=== PATIENT | female | born 1995 | race American Indian/Alaskan Native ===

== ENCOUNTER 2017-03-21 01:59 | Emergency (ER) | payer MEDICAID ==
[2017-03-21] MEDS ORDERED: TORADOL IV ONE (04:24)
[2017-03-21] MEDS ORDERED: NACL 0.9% 1000 ML 1,000 ML IV ONE ×3 (04:24→07:32)
[2017-03-21] MEDS ORDERED: ZOFRAN IV ONE (04:24)
[2017-03-21] MEDS ORDERED: ROCEPHIN/NS 1 GM/50 ML 1 GM/50 ML BAG IV ONE (04:25)
--- NOTE | 2017-03-21 04:25 | Emergency Department Report ---
ED Female HPI - General Chief complaint: Back Pain/Injury Stated complaint: LOWER BACK PAIN Time Seen by Provider: 03/21/17 04:18 Source: patient Mode of arrival: Ambulatory Limitations: No Limitations - History of Present Illness Initial comments: 21-year-old female past medical history history of pyelonephritis presents with complaint of 3-4 days of increased urinary frequency, foul-smelling urine, right -sided flank pain. Patient states she feels slightly more fatigued than usual. Patient is awake alert and oriented 3 denies abdominal pain denies chest pain or palpitations, does complain of subjective fever and chills. She has an IUD. Radiation: R flank Severity: moderate Severity scale (0 -10): 6 Quality: aching Improves with: none Worsens with: none Are you Now?: No Associated Symptoms: dysuria - Related Data Previous Rx's Medication Instructions Recorded Last Taken Type Ciprofloxacin HCl [Ciprofloxacin 500 mg PO Q12H #14 tab 03/21/17 Unknown Rx TAB] Ondansetron [Zofran Odt] 4 mg PO Q8H PRN #10 tab.rapdis 03/21/17 Unknown Rx Phenazopyridine [Pyridium] 100 mg PO TID #6 tab 03/21/17 Unknown Rx Allergies Allergy/AdvReac Type Severity Reaction Status Date / Time No Known Allergies Allergy Unverified 03/21/17 02:25 ED Review of Systems ROS: Stated complaint: LOWER BACK PAIN Other details as noted in HPI Constitutional: denies: chills, fever Eyes: denies: eye pain, eye discharge, vision change ENT: denies: ear pain, throat pain Respiratory: denies: cough, shortness of breath, wheezing Cardiovascular: denies: chest pain, palpitations Endocrine: no symptoms reported Gastrointestinal: denies: abdominal pain, nausea, diarrhea Genitourinary: dysuria, frequency (increased urinary frequency). denies: urgency, discharge Musculoskeletal: denies: back pain, joint swelling, arthralgia Skin: denies: rash, lesions Neurological: denies: headache, weakness, paresthesias Psychiatric: denies: anxiety, depression Hematological/Lymphatic: denies: easy bleeding, easy bruising ED Past Medical Hx - Past Medical History Previous Medical History?: No - Surgical History Past Surgical History?: Yes Additional Surgical History: x1 - Social History Smoking Status: Never Smoker Substance Use Type: None - Medications Home Medications: Home Medications Medication Instructions Recorded Confirmed Last Taken Type Ciprofloxacin HCl [Ciprofloxacin 500 mg PO Q12H #14 tab 03/21/17 Unknown Rx TAB] Ondansetron [Zofran Odt] 4 mg PO Q8H PRN #10 tab.rapdis 03/21/17 Unknown Rx Phenazopyridine [Pyridium] 100 mg PO TID #6 tab 03/21/17 Unknown Rx ED Physical Exam - General Limitations: No Limitations General appearance: alert, in no apparent distress - Head Head exam: Present: atraumatic, normocephalic - Eye Eye exam: Present: normal appearance, PERRL, EOMI - ENT ENT exam: Present: mucous membranes moist - Neck Neck exam: Present: normal inspection - Respiratory Respiratory exam: Present: normal lung sounds bilaterally. Absent: respiratory distress - Cardiovascular Cardiovascular Exam: Present: regular rate, normal rhythm. Absent: systolic murmur, diastolic murmur, rubs, gallop - GI/Abdominal GI/Abdominal exam: Present: soft, normal bowel sounds - Extremities Exam Extremities exam: Present: normal inspection - Back Exam Back exam: Present: normal inspection, CVA tenderness (R) (right-sided CVA tenderness on clinical exam) - Neurological Exam Neurological exam: Present: alert, oriented X3, CN II-XII intact, normal gait - Psychiatric Psychiatric exam: Present: normal affect, normal mood - Skin Skin exam: Present: warm, dry, intact, normal color. Absent: rash ED Course Vital Signs 03/21/17 03/21/17 02:08 02:17 Temperature 99.8 F H 99.8 F H Pulse Rate 105 H 101 H Respiratory 20 20 Rate Blood Pressure 118/45 118/45 O2 Sat by Pulse 100 99 Oximetry ED Medical Decision Making - Lab Data Result diagrams: 03/21/17 04:31 03/21/17 04:31 - Medical Decision Making A/P: Clinical pyelonephritis 1-CT scan consistent with pyelonephritis 2-course of 3- 4- Critical care attestation.: If time is entered above; I have spent that time in minutes in the direct care of this critically ill patient, excluding procedure time. ED Disposition Clinical Impression: Pyelonephritis Disposition: DC-01 TO HOME OR SELFCARE Is pt being admited?: No Does the pt Need Aspirin: No Condition: Stable Instructions: Acute Pyelonephritis (ED), Flank Pain (ED), Urinary Tract Infection in Women (ED) Prescriptions: Ciprofloxacin HCl [Ciprofloxacin TAB] 500 mg PO Q12H #14 tab Ondansetron [Zofran Odt] 4 mg PO Q8H PRN #10 tab.rapdis PRN Reason: Nausea Phenazopyridine [Pyridium] 100 mg PO TID #6 tab Referrals: ROBERT FARAH MD [Staff Physician] - 3-5 Days [facility] [Provider Group] - 3-5 Days [facility] [Outside] - 3-5 Days [facility] [Outside] - 3-5 Days Forms: Work/School Release Form(ED) Time of Disposition: 07:22
[2017-03-21 04:30] LABS: Bacteria,Urine 1+ /HPF (Negative); Bilirubin,Urine NEG (Negative); Blood,Urine SM (Negative); Ketones,Urine NEG (Negative); Leukocyte Esterase,Urine LG (Negative); Mucus,Urine FEW /HPF; Nitrite,Urine NEG (Negative); Urobilinogen,Urine < 2.0 mg/dL (<2.0); WBC,Urine > 182.0 /HPF (0.0-6.0)
[2017-03-21 04:44] LABS: Basophils % (Auto) 0.2 % (0.0-1.8); Eosinophils % (Auto) 0.1 % (0.0-4.3); Hematocrit 37.6 % (30.3-42.9); Hemoglobin 12.9 gm/dl (10.1-14.3); Mean Corpuscular HGB Conc 34 % (30-34); Mean Corpuscular Hemoglobin 31 pg (28-32); Mean Corpuscular Volume 90 fl (79-97); Platelet Count 230 K/mm3 (140-440); Red Blood Count 4.16 M/mm3 (3.65-5.03); Red Cell Distribution Width 13.7 % (13.2-15.2); White Blood Count 11.6 K/mm3 (4.5-11.0)
[2017-03-21 05:05] LABS: Anion Gap 16 mmol/L; Blood Urea Nitrogen 4 mg/dL (7-17); Calcium 8.8 mg/dL (8.4-10.2); Carbon Dioxide 21 mmol/L (22-30); Chloride 100.2 mmol/L (98-107); Creatine Kinase 81 units/L (30-135); Glucose 110 mg/dL (65-100); Potassium 3.6 mmol/L (3.6-5.0); Sodium 134 mmol/L (137-145)
[2017-03-21] MEDS ORDERED: NACL ONE (06:01)
--- NOTE | 2017-03-21 06:51 | Cat Scan Report ---
FINAL REPORT EXAM: CT ABDOMEN PELVIS W CON HISTORY: ? right side pyelonephritis rt flank pain TECHNIQUE: CT images are acquired through the Abdomen and Pelvis in cortical medullary and delayed excretory phases following intravenous administration of contrast. Transaxial, coronal and sagittal reformations are provided. PRIORS: None FINDINGS: Partially visualized intrathoracic contents are unremarkable. There is periportal and pericholecystic edema. The liver, gallbladder, pancreas, spleen, and adrenal glands are otherwise unremarkable. A subcentimeter focus of right upper pole renal cortical hypo enhancement is present on coronal images 69-72. The ureters are normal in course and caliber and are well opacified throughout their length on excretory phase imaging. No urothelial thickening or filling defect. Urinary bladder is unremarkable. Small and large bowel are normal in caliber. Appendix is normal. No free air, free fluid, or lymphadenopathy identified. Aorta is normal in course and caliber. Anteverted uterus containing IUD. Small volume of free fluid in the pelvis may be physiologic. Superficial soft tissues are unremarkable. No acute or aggressive appearing skeletal findings. IMPRESSION: No renal abscess. A small focus of cortical hypo enhancement in the upper pole of the right kidney may represent pyelonephritis in the proper clinical setting. Periportal and pericholecystic edema is most likely secondary to fluid resuscitation. Differential diagnosis includes cholecystitis and primary infectious and inflammatory hepatic etiologies. Consider further evaluation with ultrasound as clinically warranted. Dr. Person discussed findings with Jeramie MARK at [id number] [employer] following the examination.
[2017-03-21 07:18] LABS: Albumin 4.1 g/dL (3.9-5); Albumin/Globulin Ratio 1.3 %; Bilirubin,Direct 0.2 mg/dL (0-0.2); Bilirubin,Indirect 0.8 mg/dL; Total Protein 7.2 g/dL (6.3-8.2)
[2017-03-21] MEDS ORDERED: TYLENOL PO ONE (07:32)
[2017-03-21 08:49] VITALS: BP 107/63
== END 2017-03-21 08:50 | disposition home or self-care (01) ==
LOC: ED 01:59
DX: N12 Tubulo-interstitial nephritis, not specified as acute or chronic (principal)
CPT/HCPCS: 36415; 74177; 80048; 80074; 81001; 81025; 82140; 82150; 82550; 83690; 85025; 87076; 87086; 87186; 96361; 96365; 96375; 99284; J0696; J1885; J2405; J7030; Q9967

== ENCOUNTER 2017-03-23 20:58 | Emergency (ER) | payer MEDICAID ==
[2017-03-24 03:23] LABS: Bacteria,Urine 2+ /HPF (Negative); Bilirubin,Urine NEG (Negative); Blood,Urine NEG (Negative); Ketones,Urine 20 mg/dL (Negative); Leukocyte Esterase,Urine LG (Negative); Mucus,Urine FEW /HPF; Nitrite,Urine NEG (Negative); Urobilinogen,Urine < 2.0 mg/dL (<2.0)
--- NOTE | 2017-03-24 04:46 | Emergency Department Report ---
ED Female HPI - General Chief complaint: Urogenital-Female Stated complaint: "EXTREME VAGINAL IRRITATION" Time Seen by Provider: 03/24/17 04:21 Source: patient, family Mode of arrival: Ambulatory Limitations: No Limitations - History of Present Illness Initial comments: Patient reports that she was here 928 and was treated for urinary tract infection. She was placed on ciprofloxacin and, Zofran and Pyridium. She says she is having white rash irritated areas on her external vaginal area she said pain is 7 out of 10. She says she also has some vaginal discharge and when she wiped it looked yellow. Patient says she had no sex since she was here and currently taken antibiotics. She said the bump on her labia or painful and she' s never had that before. She reports that she thinks she has herpes but had doesn't know if that's what it is because she's never been diagnosed with herpes. Patient is currently sexually active. She had a urinary tract infection on 928 that was treated and culture urine positive for gram-negative bacilli. Urine tests on 03/21/2017 was also negative. Patient denies any abdominal or back pain. Denies any vaginal bleeding. Denies any nausea or vomiting or fever or chills. MD Complaint: vaginal discharge, dysuria, possible STD Onset/Timin -: days(s) Location: labia (5 days with lesion) Radiation: non-radiating Severity: severe Severity scale (0 -10): 7 Quality: burning Consistency: constant Improves with: none Worsens with: none Are you Now?: No Associated Symptoms: vaginal discharge, dysuria, rash. denies: vaginal bleeding , abdominal pain, nausea/vomiting, fever/chills, headaches, loss of appetite, hematuria, seizure, shortness of breath, syncope, weakness - Related Data Sexually active: Yes Previous Rx's Medication Instructions Recorded Last Taken Type Ciprofloxacin HCl [Ciprofloxacin 500 mg PO Q12H #14 tab 03/21/17 Unknown Rx TAB] Ondansetron [Zofran Odt] 4 mg PO Q8H PRN #10 tab.rapdis 03/21/17 Unknown Rx Phenazopyridine [Pyridium] 100 mg PO TID #6 tab 03/21/17 Unknown Rx Ibuprofen [Motrin] 600 mg PO Q8H PRN #15 tablet 03/24/17 Unknown Rx Nitrofurantoin [place]/M-Cryst 100 mg PO Q12HR #14 capsule 03/24/17 Unknown Rx [Macrobid CAP] Valacyclovir HCl [Valtrex] 1,000 mg PO TID #21 tablet 03/24/17 Unknown Rx Allergies Allergy/AdvReac Type Severity Reaction Status Date / Time No Known Allergies Allergy Unverified 03/21/17 02:25 ED Review of Systems ROS: Stated complaint: "EXTREME VAGINAL IRRITATION" Other details as noted in HPI Comment: All other systems reviewed and negative Constitutional: no symptoms reported Eyes: denies: eye pain, vision change ENT: denies: throat pain Respiratory: no symptoms reported Cardiovascular: denies: chest pain, palpitations, dyspnea on exertion, edema, syncope, paroxysmal nocturnal dyspnea Gastrointestinal: denies: abdominal pain, nausea, vomiting, diarrhea, constipation Genitourinary: dysuria, discharge. denies: frequency, hematuria Musculoskeletal: denies: back pain, joint swelling, arthralgia, myalgia Skin: lesions (genital, painful). denies: rash, pruritus Neurological: denies: headache ED Past Medical Hx - Past Medical History Previous Medical History?: Yes Additional medical history: Urinary tract infection - Surgical History Past Surgical History?: Yes Additional Surgical History: x1 - Family History Family history: no significant - Social History Smoking Status: Never Smoker Substance Use Type: None Other Social History: Single - Medications Home Medications: Home Medications Medication Instructions Recorded Confirmed Last Taken Type Ciprofloxacin HCl [Ciprofloxacin 500 mg PO Q12H #14 tab 03/21/17 Unknown Rx TAB] Ondansetron [Zofran Odt] 4 mg PO Q8H PRN #10 tab.rapdis 03/21/17 Unknown Rx Phenazopyridine [Pyridium] 100 mg PO TID #6 tab 03/21/17 Unknown Rx Ibuprofen [Motrin] 600 mg PO Q8H PRN #15 tablet 03/24/17 Unknown Rx Nitrofurantoin [place]/M-[place]ryst 100 mg PO Q12HR #14 capsule 03/24/17 Unknown Rx [Macrobid CAP] Valacyclovir HCl [Valtrex] 1,000 mg PO TID #21 tablet 03/24/17 Unknown Rx ED Physical Exam - General Limitations: No Limitations General appearance: alert, in no apparent distress - Head Head exam: Present: atraumatic, normocephalic, normal inspection - Eye Eye exam: Present: normal appearance, PERRL, EOMI. Absent: periorbital swelling , periorbital tenderness Pupils: Present: normal accommodation - ENT ENT exam: Present: normal exam, normal orophraynx, mucous membranes moist, TM's normal bilaterally, normal external ear exam - Neck Neck exam: Present: normal inspection, full ROM. Absent: tenderness, meningismus, lymphadenopathy - Respiratory Respiratory exam: Present: normal lung sounds bilaterally. Absent: respiratory distress, chest wall tenderness - Cardiovascular Cardiovascular Exam: Present: regular rate, normal rhythm, normal heart sounds. Absent: systolic murmur, diastolic murmur - GI/Abdominal GI/Abdominal exam: Present: soft, normal bowel sounds. Absent: distended, tenderness, guarding, rebound, rigid, organomegaly, mass, bruit, pulsatile mass - Rectal Rectal exam: Present: normal inspection - External exam: Present: lesions (tender to palpate). Absent: normal external exam, erythema, swelling, lacerations, ecchymosis, bleeding Speculum exam: Present: vaginal discharge, cervical discharge. Absent: erythema , vaginal bleeding, foreign body, tissue, laceration Bi-manual exam: Present: normal bi-manual exam - Expanded Exam Expanded Female exam: Present: herpetic lesions, vulvar tenderness. Absent: vaginal laceration, tissue present in vagina, vulvar erythema, foreign body Speculum exam: Present: cervical OS closed, vaginal discharge. Absent: vaginal bleeding - Extremities Exam Extremities exam: Present: normal inspection, full ROM, normal capillary refill , other (no clubbing cyanosis or edema to extremities. +2 pulses to extremities.). Absent: tenderness, pedal edema, joint swelling, calf tenderness - Back Exam Back exam: Present: normal inspection, full ROM. Absent: tenderness, CVA tenderness (R), CVA tenderness (L), muscle spasm, paraspinal tenderness, vertebral tenderness, rash noted - Neurological Exam Neurological exam: Present: alert, oriented X3, normal gait, reflexes normal. Absent: motor sensory deficit - Psychiatric Psychiatric exam: Present: normal affect, normal mood - Skin Skin exam: Present: warm, dry, intact, normal color, rash ( lesions noted to the external vaginal area) ED Course Vital Signs 03/23/17 22:14 Temperature 98.6 F Pulse Rate 82 Respiratory 18 Rate Blood Pressure 129/79 O2 Sat by Pulse 99 Oximetry - Reevaluation(s) Reevaluation #1: 03/24/17 06:23 Patient given Rocephin 1 g IM and azithromycin 1 g by mouth to treat gonorrhea and chlamydia at her request. ED Medical Decision Making - Lab Data Lab Results 03/24/17 Range/Units 02:30 Urine Color Yellow (Yellow) Urine Turbidity Clear (Clear) Urine pH 6.0 (5.0-7.0) Ur Specific [place] 1.014 (1.003-1.030) Urine Protein 30 mg/dl (Negative) mg/dL Urine Glucose (UA) Neg (Negative) mg/dL Urine Ketones 20 (Negative) mg/dL Urine Blood Neg (Negative) Urine Nitrite Neg (Negative) Urine Bilirubin Neg (Negative) Urine Urobilinogen < 2.0 (<2.0) mg/dL Ur Leukocyte Esterase Lg (Negative) Urine WBC (Auto) 58.0 H (0.0-6.0) /HPF Urine RBC (Auto) 9.0 (0.0-6.0) /HPF U Epithel Cells (Auto) 18.0 H (0-13.0) /HPF Urine Bacteria (Auto) 2+ (Negative) /HPF Urine Mucus Few /HPF Urine culture sent and pending Previous culture from 03/21/2017 suggests Benny night negative bacteria in urine. We'll change antibiotic. Wet prep negative for clue cells, Trichomonas and yeast. Gonorrhea and Chlamydia is pending. - Medical Decision Making ED course: Here reports that she was here on 03/21/2017 and was treated for kidney and urinary tract infection with ciprofloxacin and she said for the past 5 days she's been having in a painful rash in her vaginal area and she thinks is herpes. She also reports vaginal discharge and when she wipes is yellow. Patient is wanting to be treated for gonorrhea and chlamydia and other STD. Patient had repeat urinalysis done which was contaminated and previous urinalysis from 03/21 was also contaminated with epithelial cells of 29 and today it was epithelial cells 18 large leukocyte Estrace 58 white count and 2+ bacteria. She had 20 of dixon tones and 30 of protein in her urine. Patient able to tolerate large amount of fluids by mouth and she is not having any nausea. She is currently on ciprofloxacin was started on 03/21/2017 for urinary tract infection. I reviewed patient's urine culture that was sent on and it reports that patient has negative rods in her urine. Given the fact that urine was contaminated this could be consider falls but given the patient having dysuria with large amount leukocyte esterase and white counts which could be from vaginal discharge I will go ahead and discontinue Cipro and start her on Macrobid. Wet prep revealed no clue cells, no trichomonas and no yeast. The findings revealed herpetic type lesion that is painful to touch and without touch to external vaginal area. Pelvic exam revealed cervix and vaginal discharge. I discussed the patient's diagnosis and treatment plan and she wants to be treated in emergency room for gonorrhea and Chlamydia even though results are not back. She was given Rocephin 1 g IM to treat gonorrhea and UTI and also azithromycin 1 g by mouth to treat chlamydia. I instructed the patient that she needs to follow up with DEPUTY COURT CLERK and she requested me to refer her to one. I told her that she needs to have a Pap smear done to include HPV test then. test from 03/21/2017 was negative . Patient discharged home with prescription for Macrobid, Diflucan on, valacyclovir and Motrin. Critical care attestation.: If time is entered above; I have spent that time in minutes in the direct care of this critically ill patient, excluding procedure time. 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 Call tomorrow to schedule appointment for female exam and pap smear Take medication as prescribed Please refrain from sexual activity until cleared by DEPUTY COURT CLERK You will need repeat urine and std test in 10 days Practice safe sex Stop ciprofloxacin and start Macrobid antibiotic. This is for urinary tract infection Valtrex for herpes lesion Take Motrin for pain as instructed Please tell partner that you were treated in emergency room for STD as discussed. Prescriptions: Ibuprofen [Motrin] 600 mg PO Q8H PRN #15 tablet PRN Reason: Pain Nitrofurantoin [place]/M-[place]ryst [Macrobid CAP] 100 mg PO Q12HR #14 capsule Valacyclovir HCl [Valtrex] 1,000 mg PO TID #21 tablet Referrals: NORA VILLARREAL MD [Staff Physician] - 2-3 Days Forms: Work/School Release Form(ED)
[2017-03-24] MEDS ORDERED: ROCEPHIN IM STA (05:26)
[2017-03-24] MEDS ORDERED: XYLOCAINE 1% MPF 5 mL INFILTRATI ONE (05:26)
[2017-03-24] MEDS ORDERED: ZITHROMAX PO ONE (05:26)
[2017-03-24 06:56] VITALS: BP 118/69
== END 2017-03-24 07:22 | disposition home or self-care (01) ==
LOC: ED 20:58
DX: A60.04 Herpesviral vulvovaginitis (principal); N39.0 Urinary tract infection, site not specified; E86.0 Dehydration
CPT/HCPCS: 81001; 87086; 87210; 87591; 96372; 99284; J0696

== ENCOUNTER 2018-02-15 15:45 | Emergency (ER) | payer MEDICAID ==
[2018-02-15] MEDS ORDERED: MOTRIN PO ONE (15:58)
[2018-02-15 18:36] VITALS: BP 100/53
--- NOTE | 2018-02-15 19:50 | Emergency Department Report ---
<CHASEFREDYSYDIan Back - Last Filed: 02/15/18 19:46> ED General Adult HPI - General Chief complaint: Headache Stated complaint: MAJOR HEAD ACHE/SIDE PAIN Time Seen by Provider: 02/15/18 19:39 Source: patient Mode of arrival: Ambulatory Limitations: No Limitations - History of Present Illness Initial comments: 22-year-old -German female presents to the emergency room for a headache and right lower quadrant pain. Patient reports that her headache feels like pressure and it started about 12 AM Saturday morning. She reports that the right lower quadrant pain has been going on for 2 days it's achy in this as 6 out of 10. Patient denies any vomiting but does admit to nausea and dysuria. She denies any vaginal discharge no sore throat. Patient reports that the pain is more on her left lower quadrant when she lays on the right side. Patient reports that she took a quarter of a Tylenol No. 3 which she reports did not help with her pain. Patient has no past medical history currently takes no medications on a daily basis and has no known drug allergies. -: days(s) (2 days for right lower quadrant pain), This morning (12 AM for headache with pressure) Location: head, abdomen (right lower quadrant) Radiation: non-radiation Severity scale (0 -10): 6 Quality: aching (abdomen), other (headache with pressure,) Consistency: constant Improves with: medication (Motrin that was given to her in triage) - Related Data Previous Rx's Medication Instructions Recorded Last Taken Type Ciprofloxacin HCl [Ciprofloxacin 500 mg PO Q12H #14 tab 03/21/17 Unknown Rx TAB] Ondansetron [Zofran Odt] 4 mg PO Q8H PRN #10 tab.rapdis 03/21/17 Unknown Rx Phenazopyridine [Pyridium] 100 mg PO TID #6 tab 03/21/17 Unknown Rx Nitrofurantoin [place]/M-Cryst 100 mg PO Q12HR #14 capsule 03/24/17 Unknown Rx [Macrobid CAP] Valacyclovir HCl [Valtrex] 1,000 mg PO TID #21 tablet 03/24/17 Unknown Rx Ibuprofen [Motrin 600 MG tab] 600 mg PO Q8H PRN #15 tablet 02/15/18 Unknown Rx Nitrofurantoin Monohyd/M-Cryst 100 mg PO BID #14 capsule 02/15/18 Unknown Rx [Macrobid 100 mg Capsule] Allergies Allergy/AdvReac Type Severity Reaction Status Date / Time No Known Allergies Allergy Unverified 03/21/17 02:25 ED Review of Systems ROS: Stated complaint: MAJOR HEAD ACHE/SIDE PAIN Other details as noted in HPI Constitutional: chills, fever Eyes: denies: eye pain, eye discharge, vision change ENT: denies: ear pain, throat pain Respiratory: denies: cough, shortness of breath, wheezing Cardiovascular: denies: chest pain, palpitations Gastrointestinal: abdominal pain, nausea Genitourinary: dysuria Musculoskeletal: denies: back pain, joint swelling, arthralgia Skin: denies: rash, lesions Neurological: headache Psychiatric: denies: anxiety, depression Hematological/Lymphatic: denies: easy bleeding, easy bruising ED Past Medical Hx - Past Medical History Previous Medical History?: No Additional medical history: Urinary tract infection - Surgical History Past Surgical History?: Yes Additional Surgical History: x1 - Social History Smoking Status: Never Smoker Substance Use Type: None - Medications Home Medications: Home Medications Medication Instructions Recorded Confirmed Last Taken Type Ciprofloxacin HCl [Ciprofloxacin 500 mg PO Q12H #14 tab 03/21/17 Unknown Rx TAB] Ondansetron [Zofran Odt] 4 mg PO Q8H PRN #10 tab.rapdis 03/21/17 Unknown Rx Phenazopyridine [Pyridium] 100 mg PO TID #6 tab 03/21/17 Unknown Rx Nitrofurantoin [place]/M-Cryst 100 mg PO Q12HR #14 capsule 03/24/17 Unknown Rx [Macrobid CAP] Valacyclovir HCl [Valtrex] 1,000 mg PO TID #21 tablet 03/24/17 Unknown Rx Ibuprofen [Motrin 600 MG tab] 600 mg PO Q8H PRN #15 tablet 02/15/18 Unknown Rx Nitrofurantoin Monohyd/M-Cryst 100 mg PO BID #14 capsule 02/15/18 Unknown Rx [Macrobid 100 mg Capsule] ED Physical Exam - General Limitations: No Limitations General appearance: alert, in no apparent distress - Head Head exam: Present: atraumatic, normocephalic - Eye Eye exam: Present: EOMI - ENT ENT exam: Present: mucous membranes moist - Neck Neck exam: Present: normal inspection - Respiratory Respiratory exam: Present: normal lung sounds bilaterally. Absent: respiratory distress - Cardiovascular Cardiovascular Exam: Present: tachycardia - GI/Abdominal GI/Abdominal exam: Present: soft, tenderness (suprapubic), normal bowel sounds. Absent: distended, guarding - Extremities Exam Extremities exam: Present: normal inspection. Absent: full ROM, tenderness - Back Exam Back exam: Present: normal inspection. Absent: tenderness, CVA tenderness (R), CVA tenderness (L) - Neurological Exam Neurological exam: Present: alert, oriented X3 - Psychiatric Psychiatric exam: Present: normal affect, normal mood - Skin Skin exam: Present: warm, dry, intact, normal color. Absent: rash ED Course Vital Signs 02/15/18 02/15/18 02/15/18 15:55 18:35 19:39 Temperature 102.0 F H 99.2 F 99.1 F Pulse Rate 124 H 104 H 100 H Respiratory 18 18 18 Rate Blood Pressure 107/62 Blood Pressure 100/53 [Right] O2 Sat by Pulse 100 98 99 Oximetry ED Medical Decision Making - Radiology Data Radiology results: report reviewed, image reviewed FINAL REPORT EXAM: CT ABDOMEN PELVIS W CON HISTORY: right lower quadrant pain with fever COMPARISON: CT abdomen pelvis February 2017. TECHNIQUE: Contiguous axial images were obtained. Additional sagittal and coronal reformatted images were obtained. Administration of IV contrast given per institution protocol. Images submitted for interpretation. FINDINGS: Lung bases are clear. No calcified gallstones or biliary dilatation. Homogeneous enhancement of the liver and spleen. Homogeneous enhancement the pancreas and adrenal glands. No hydronephrosis. There are 2 hypodense subcentimeter lesions at the inferior margin right kidney and a 4 millimeter hyperdense lesion at the superior margin right kidney. These likely reflect small cysts. Solid lesion not entirely excluded given their subcentimeter size. IUD is present along the uterus. IUD is inverted with the T-bar along the lower uterine segment. Small amount of free fluid in the pelvis. Mild wall thickening and hyperemia of the urinary bladder concerning for cystitis. Cystic structures in the bilateral ovaries likely physiologic given the patient's age. There is a left ovarian cystic structure measuring 3.2 x 3.7 centimeters which appears to be multiloculated. 2.2 x 1.8 centimeter right ovarian cystic structure. These are suspected to be physiologic given the patient's age. Moderate large amount of stool in the colon. No focal inflammatory changes the bowel. Probable partial visualization of the appendix which is partially gas-filled measuring 4-5 millimeters in diameter (series 2, image 115 and series 602, images 59 and 60). Bony pelvis and lumbar spine are grossly intact. IMPRESSION: Mild wall thickening and hyperemia the urinary bladder concerning for cystitis. IUD is present along the uterus. The IUD is inverted in position. Bilateral ovarian cystic structures, larger on the left. These are suspected to be physiologic given the patient's age. These could be further evaluated by pelvic ultrasound if clinically indicated. Small amount of free fluid in the pelvis within physiologic limits. Visualized portions the appendix are normal in caliber. Moderate large amount of stool in the colon. No focal inflammatory changes the bowel. No other acute findings. Transcribed By: LMA Dictated By: TERRI ELKINS MD Electronically Authenticated By: TERRI ELKINS MD Signed Date/Time: 02/15/182116 DD/ 16 TD/TT: 02/15/182116 Critical care attestation.: If time is entered above; I have spent that time in minutes in the direct care of this critically ill patient, excluding procedure time. ED Disposition Disposition: DC-01 TO HOME OR SELFCARE Is pt being admited?: No Does the pt Need Aspirin: No Condition: Stable Instructions: Ibuprofen (By mouth), Nitrofurantoin Combination (By mouth), Urinary Tract Infection in Women (ED) Additional Instructions: Complete antibiotics as prescribed. Motrin for pain management. Increase your water intake by 2 L a day. Please follow up with her primary care provider if you do not have one I have listed one below. Prescriptions: Ibuprofen [Motrin 600 MG tab] 600 mg PO Q8H PRN #15 tablet PRN Reason: Pain Nitrofurantoin Monohyd/M-Cryst [Macrobid 100 mg Capsule] 100 mg PO BID #14 capsule Referrals: PRIMARY CAREMD [Primary Care Provider] - 3-5 Days Forms: Work/School Release Form(ED) <DIAMOND MISHRA - Last Filed: 02/16/18 00:45> ED Medical Decision Making - Lab Data Result diagrams: 02/15/18 19:57 02/15/18 19:57
[2018-02-15 20:18] LABS: Basophils % (Auto) 0.4 % (0.0-1.8); Hematocrit 39.4 % (30.3-42.9); Hemoglobin 13.3 gm/dl (10.1-14.3); Lymphocytes # (Auto) 0.8 K/mm3 (1.2-5.4); Lymphocytes % (Auto) 7.6 % (13.4-35.0); Mean Corpuscular HGB Conc 34 % (30-34); Mean Corpuscular Hemoglobin 32 pg (28-32); Mean Corpuscular Volume 93 fl (79-97); Monocytes # (Auto) 0.6 K/mm3 (0.0-0.8); Monocytes % (Auto) 5.9 % (0.0-7.3); Platelet Count 267 K/mm3 (140-440); Red Blood Count 4.22 M/mm3 (3.65-5.03); Red Cell Distribution Width 12.8 % (13.2-15.2)
[2018-02-15 20:24] LABS: Bacteria,Urine 1+ /HPF (Negative); Bilirubin,Urine NEG (Negative); Blood,Urine NEG (Negative); Color,Urine Yellow (Yellow); Mucus,Urine FEW /HPF
[2018-02-15 20:31] LABS: Alanine Aminotransferase 11 units/L (7-56); Albumin 4.2 g/dL (3.9-5); BUN/Creatinine Ratio 10; Blood Urea Nitrogen 7 mg/dL (7-17); Calcium 9.4 mg/dL (8.4-10.2); Hemolysis Index 5
--- NOTE | 2018-02-15 21:18 | Cat Scan Report ---
FINAL REPORT EXAM: CT ABDOMEN PELVIS W CON HISTORY: right lower quadrant pain with fever COMPARISON: CT abdomen pelvis February 2017. TECHNIQUE: Contiguous axial images were obtained. Additional sagittal and coronal reformatted images were obtained. Administration of IV contrast given per institution protocol. Images submitted for interpretation. FINDINGS: Lung bases are clear. No calcified gallstones or biliary dilatation. Homogeneous enhancement of the liver and spleen. Homogeneous enhancement the pancreas and adrenal glands. No hydronephrosis. There are 2 hypodense subcentimeter lesions at the inferior margin right kidney and a 4 millimeter hyperdense lesion at the superior margin right kidney. These likely reflect small cysts. Solid lesion not entirely excluded given their subcentimeter size. IUD is present along the uterus. IUD is inverted with the T-bar along the lower uterine segment. Small amount of free fluid in the pelvis. Mild wall thickening and hyperemia of the urinary bladder concerning for cystitis. Cystic structures in the bilateral ovaries likely physiologic given the patient's age. There is a left ovarian cystic structure measuring 3.2 x 3.7 centimeters which appears to be multiloculated. 2.2 x 1.8 centimeter right ovarian cystic structure. These are suspected to be physiologic given the patient's age. Moderate large amount of stool in the colon. No focal inflammatory changes the bowel. Probable partial visualization of the appendix which is partially gas-filled measuring 4-5 millimeters in diameter (series 2, image 115 and series 602, images 59 and 60). Bony pelvis and lumbar spine are grossly intact. IMPRESSION: Mild wall thickening and hyperemia the urinary bladder concerning for cystitis. IUD is present along the uterus. The IUD is inverted in position. Bilateral ovarian cystic structures, larger on the left. These are suspected to be physiologic given the patient's age. These could be further evaluated by pelvic ultrasound if clinically indicated. Small amount of free fluid in the pelvis within physiologic limits. Visualized portions the appendix are normal in caliber. Moderate large amount of stool in the colon. No focal inflammatory changes the bowel. No other acute findings.
--- NOTE | 2018-02-19 05:57 | Emergency Department Report ---
Blank Doc - Documentation Documentation: NEUROLOGIC: No focal Deficit, Cranial nerves II through XII are grossly intact. No loss of sensation, No facial droop, Negative rhomberg. Negative pronator drift, finger to nose intact, phillips to heel bilateral intact, tongue protrusion intact PSYCHIATRIC: Mood is congruent with affect,
== END 2018-02-15 23:00 | disposition home or self-care (01) ==
LOC: ED 15:45
DX: N83.202 Unspecified ovarian cyst, left side (principal); N83.201 Unspecified ovarian cyst, right side; R51 Headache
CPT/HCPCS: 36415; 74177; 80053; 81001; 82140; 84702; 85025; 87040; 99284; Q9967